=== PATIENT | male | born 1975 | race Caucasian/White ===

== ENCOUNTER 2020-05-09 09:11 | Emergency (ER) | payer SELFPAY ==
[~2020-05-09] VITALS: Ht 172.7 cm; Wt 97.5 kg
[2020-05-09 09:19] VITALS: Ht 172.7 cm; Wt 97.5 kg
[2020-05-09 11:27] VITALS: BP 149/88
== END 2020-05-09 11:27 | disposition home or self-care (01) ==
LOC: ED 09:11
DX: S61.213A Laceration without foreign body of left middle finger without damage to nail, initial encounter (principal); W45.8XXA Other foreign body or object entering through skin, initial encounter; Y93.89 Activity, other specified; Y92.89 Other specified places as the place of occurrence of the external cause; Y99.8 Other external cause status
CPT/HCPCS: J2001

== ENCOUNTER 2020-05-11 10:49 | Emergency (ER) | payer SELFPAY ==
[~2020-05-11] VITALS: Ht 167.6 cm; Wt 98.0 kg
[2020-05-11 10:56] VITALS: BP 143/76; Ht 167.6 cm; Wt 98.0 kg
== END 2020-05-11 11:40 | disposition home or self-care (01) ==
LOC: ED 10:49
DX: S61.213D Laceration without foreign body of left middle finger without damage to nail, subsequent encounter (principal); X58.XXXD Exposure to other specified factors, subsequent encounter